=== PATIENT | female | born 1960 | race Caucasian/White ===

== ENCOUNTER 2017-07-16 18:39 | Emergency (ER) | payer BC ==
[2017-07-16 18:55] VITALS: BP 181/76; PULSE 63; RESP 18; TEMP 98.5; O2SAT 100
--- NOTE | 2017-07-16 20:58 | RADRPT ---
EXAM DATE/TIME: 07/16/2017 20:03 [facility] COMPARISON: No previous studies available for comparison. INDICATIONS : Radiculopathy. Pain in lower back with right leg numbness. MEDICAL HISTORY : Diabetes mellitus type 2. SURGICAL HISTORY : Cholecystectomy. ENCOUNTER: Initial ACUITY: 1 week PAIN SCORE: 10/10 LOCATION: Right lower back region. TECHNIQUE: Multiplanar multisequence MRI of the lumbar spine was performed without contrast. FINDINGS: The most caudal appearing lumbar vertebra is numbered as L5. VERTEBRAE: Homogeneous signal. Normal alignment. CONUS: Normal level and configuration. T12-L1: The thecal sac has a normal diameter. No evidence of disc bulge or protrusion. The neural foramina are patent bilaterally. L1-L2: The thecal sac has a normal diameter. No evidence of disc bulge or protrusion. The neural foramina are patent bilaterally. L2-L3: The thecal sac has a normal diameter. No evidence of disc bulge or protrusion. The neural foramina are patent bilaterally. L3-L4: No significant abnormality. There is a large extruded disc posterior to the right side of the vertebral body at L5. On the sagitt al T2-weighted images the annular tear appears to be at L5-S1 with extrusion cephalad although I lise ot completely but an extrusion caudally from L4-5. At L4-5 there is a mild central disc bulge or protrusion as well. There is severe effacement of the r ight lateral recess at L5. CONCLUSION: 1. There is a large extruded disc on the right side of L5 posteriorly resulting in severe stenosis of the right lateral recess. The extruded disc measures up to about 2.9 cm in length and 1 cm in diamet er and probably extends cephalad from L5-S1. Luis Knox MD on July 16, 2017 at 20:52 Board Certified Radiologist. This report was verified electronically.
[2017-07-16 21:55] LABS: BASOPHIL # 0.1 TH/MM3 (0-0.2); BASOPHIL % 0.4 % (0.0-2.0); EOSINOPHIL # 0.1 TH/MM3 (0-0.4); EOSINOPHIL % 0.5 % (0.0-4.0); HEMATOCRIT 42.4 % (35.0-46.0); HEMOGLOBIN 13.9 GM/DL (11.6-15.3); LYMPH % 30.3 % (9.0-44.0); LYMPHOCYTE # 5.3 TH/MM3 (1.0-4.8); MEAN CELL VOLUME 88.4 FL (80.0-100.0); MEAN CORPUSCULAR HEMOGLOBIN 28.9 PG (27.0-34.0); MEAN CORPUSCULAR HGB CONC 32.7 % (32.0-36.0); MEAN PLATELET VOLUME 8.5 FL (7.0-11.0); MONO % 5.9 % (0.0-8.0); NEUT % 62.9 % (16.0-70.0); PLATELET COUNT 349 TH/MM3 (150-450); RED CELL DISTRIBUTION WIDTH 13.6 % (11.6-17.2); WHITE BLOOD COUNT 17.5 TH/MM3 (4.0-11.0)
[2017-07-16 22:19] LABS: PROTHROMBIN TIME - PATIENT 10.3 SEC (9.8-11.6)
--- NOTE | 2017-07-16 22:21 | PD ---
HPI Chief Complaint: Back/ Neck Pain or Injury Time Seen by Provider: 22:19 Travel History International Travel<30 days: No Contact w/Intl Traveler<30days: No Traveled to known affect area: No History of Present Illness HPI The patient is a 57 year old female who presents to the [facility] emergency department with a history of increasing low back pain that began when she moved to the area and started walking 4-6 miles per day. She reports that 2 weeks ago she stopped walking that much due to an exacerbation of her degenerative disc disease of the back. She reports that approximately 2 weeks ago she developed a new type of pressure sensation in her back that radiated down the right leg. She reports that she then began to have numbness in the dorsum of the right foot and foot drop. She reports that she was catching her toes on objects while she walks. She reports that she developed the weakness in her right lower extremity 2 days ago. She reports that she went to the emergency department for treatment of her pain and was given a prescription for tramadol, however she has not been taking that as she does not tolerate narcotics well, however she has been on a prednisone taper for the last 4 days. She reports that she additionally went to a local chiropractor and an MRI was ordered. The MRI was completed earlier today and the chiropractor spoke to the neurosurgeon, Dr. Miller who is on-call for neurosurgery today. She was sent to the emergency department for evaluation and treatment. She denies having any recent fevers or chills. She reports having night sweats that are no worse than usua related to being menopausal. She denies having any loss of bowel or bladder control. On review of systems otherwise, the patient denies having cough, congestion, neck pain, chest pain, shortness of breath, abdominal pain, vomiting, urinary symptoms, or other neurologic symptoms. Patient reports that she has had some recent diarrhea, however she was recently diagnosed as being diabetic and placed on metformin. [facility] Past Medical History Narrative Medical The patient's past medical history is significant for diabetes mellitus, degenerative disc disease of the low back. Diabetes: Yes Past Surgical History Narrative Surgical The patient's past surgical history is significant for a cholecystectomy. Social History Alcohol Use: No Tobacco Use: No Substance Use: No Allergies-Medications (Allergen,Severity, Reaction): Coded Allergies: Penicillins (Verified Allergy, Mild, HIVES, 07/16/17) Sulfa (Sulfonamide Antibiotics) (Verified Allergy, Mild, HIVES, 07/16/17) amoxicillin (Verified Allergy, Mild, HIVES, 07/16/17) ciprofloxacin (Verified Allergy, Mild, HIVES, 07/16/17) erythromycin base (Verified Allergy, Mild, HIVES, 07/16/17) sulfamethoxazole (Verified Allergy, Mild, HIVES, 07/16/17) trimethoprim (Verified Allergy, Mild, HIVES, 07/16/17) phenazopyridine (Verified Allergy, Unknown, PALPITATIONS, 07/16/17) Narrative Medication Metformin, prednisone taper, 800 mg of ibuprofen as needed Review of Systems Except as stated in HPI: all other systems reviewed are Neg General / Constitutional: No: Fever Eyes: No: Visual changes HENT: No: Headaches Cardiovascular: No: Chest Pain or Discomfort Respiratory: No: Shortness of Breath Gastrointestinal: No: Nausea, Vomiting, Diarrhea, Abdominal Pain Genitourinary: No: Dysuria, Incontinence Musculoskeletal: No: Pain Skin: No Rash Neurologic: Positive: Weakness, Focal Abnormalities, Sensory Disturbance, No: Change in Mentation, Slurred Speech Psychiatric: No: Depression Endocrine: No: Polydipsia Hematologic/Lymphatic: No: Easy Bruising Physical Exam Narrative General: The patient is a well-developed well-nourished female in no acute distress. Head and Neck exam: Head is normocephalic atraumatic. Eyes: EOMI, pupils are equal round and reactive to light. Nose: Midline septum with pink mucous membranes Mouth: Dentition unremarkable. Moist mucus membranes. Posterior oropharynx is not erythematous. No tonsillar hypertrophy. Uvula midline. Airway patent. Neck: No palpable lymphadenopathy. No nuchal rigidity. No thyromegaly. Cardiovascular: Regular rate and rhythm without murmurs, gallops, or rubs. Lungs: Clear to auscultation bilaterally. No wheezes, rhonchi, or rales. Abdomen: Soft, without tenderness to palpation in all 4 quadrants of the abdomen. No guarding, rebound, or rigidity. Normal bowel sounds are audible. No tenderness on palpation of McBurney's point. Extremities: No clubbing, cyanosis, or edema. 2+ pulses in all 4 extremities. No calf tenderness on palpation. Back: No spinous process tenderness to palpation. No costovertebral angle tenderness to palpation. The patient has tenderness on palpation over the right buttock. There is no erythema, edema, warmth or rash noted Neurologic Exam: Cranial nerves 2-12 were intact on exam. The patient has strength that is 5/5 in bilateral upper extremities and the left lower extremity, and on examination of the right lower extremity the patient has weakness with toe pointing. The patient reports having numbness and tingling to the dorsum of the right foot. The patient has a positive straight leg raise bilaterally Skin Exam: No rash noted. Intact skin that is warm and dry. Data Data Last Documented VS Vital Signs Date Time Temp Pulse Resp B/P (MAP) Pulse Ox O2 Delivery O2 Flow Rate FiO2 07/16/17 18:55 98.5 63 18 181/76 (111) 100 Orders Orders Complete Blood Count With Diff (07/16/17 19:11) Basic Metabolic Panel (Bmp) (07/16/17 19:11) Coag Profile (07/16/17 19:11) Mri L Spine W/O Contrast (07/16/17 ) Electrocardiogram (07/16/17 22:53) Urinalysis - C+S If Indicated (07/16/17 22:53) Chest, Single Ap (07/16/17 22:53) Labs Laboratory Tests Test 07/16/17 20:55 White Blood Count 17.5 TH/MM3 Red Blood Count 4.80 MIL/MM3 Hemoglobin 13.9 GM/DL Hematocrit 42.4 % Mean Corpuscular Volume 88.4 FL Mean Corpuscular Hemoglobin 28.9 PG Mean Corpuscular Hemoglobin Concent 32.7 % Red Cell Distribution Width 13.6 % Platelet Count 349 TH/MM3 Mean Platelet Volume 8.5 FL Neutrophils (%) (Auto) 62.9 % Lymphocytes (%) (Auto) 30.3 % Monocytes (%) (Auto) 5.9 % Eosinophils (%) (Auto) 0.5 % Basophils (%) (Auto) 0.4 % Neutrophils # (Auto) 11.0 TH/MM3 Lymphocytes # (Auto) 5.3 TH/MM3 Monocytes # (Auto) 1.0 TH/MM3 Eosinophils # (Auto) 0.1 TH/MM3 Basophils # (Auto) 0.1 TH/MM3 CBC Comment AUTO DIFF Differential Comment AUTO DIFF CONFIRMED Platelet Estimate NORMAL Platelet Morphology Comment NORMAL Red Cell Morphology Comment NORMAL Prothrombin Time 10.3 SEC Prothromb Time International Ratio 1.0 RATIO Activated Partial Thromboplast Time 25.2 SEC Blood Urea Nitrogen 19 MG/DL Creatinine 0.81 MG/DL Random Glucose 127 MG/DL Calcium Level 9.4 MG/DL Sodium Level 139 MEQ/L Potassium Level 4.0 MEQ/L Chloride Level 102 MEQ/L Carbon Dioxide Level 27.1 MEQ/L Anion Gap 10 MEQ/L Estimat Glomerular Filtration Rate 73 ML/MIN MDM Medical Decision Making Medical Screen Exam Complete: Yes Emergency Medical Condition: Yes Medical Record Reviewed: Yes Differential Diagnosis Lumbar radiculopathy, versus spinal stenosis, versus spinal mass Narrative Course During the course of the patient's emergency department visit, the patient's history, examination, and differential diagnosis were reviewed with the patient. The patient was placed on a hospital monitor with oximetry and frequent blood pressure monitoring. The patient had IV access obtained and blood work sent for analysis. The patient's laboratory studies were reviewed and remarkable for a white count of 17.5, hemoglobin 13.9, platelets 349 with an unremarkable differential. The patient's leukocytosis could be related to the patient's recent placement on a prednisone taper pack. She has no other signs or symptom to suggest infection. Basic metabolic profile is remarkable for BUN of 19, glucose 127. PT 10.3, PTT 20 five-point Radiology studies were reviewed and remarkable for a lumbar spine MRI reveals there is a large extruded disc on the right side of L5 posteriorly resulting in severe stenosis of the right lateral recess. The extruded disc measures up to about 2.9 cm in length and 1 cm in diameter and probably extends cephalad from L5-S1. A call was placed out to Dr. Miller. He did arrive in the emergency department and evaluated the patient in person after reviewing the patient's MRI findings. He discussed the patient's history and examination with her and recommended surgery, however the patient prefers watchful waiting and discharge home with close follow up. She will follow-up with him in his office for reexamination. Per his recommendation she will complete the prednisone taper pack and will also be given a prescription for Toradol to be taken as needed for pain. She was instructed to discontinue the Advil/ibuprofen that she has been taking at home currently. She will also be given a prescription for Robaxin. She was also instructed that if the symptoms are worsening including the weakness she should report back immediately to the emergency department. The patient is resting comfortably and feels better, is alert and in no distress.The patient will pursue further outpatient evaluation with a primary care physician or other designated or consulting physician as indicated in the discharge instructions. The patient expressed understanding and was agreeable with this plan. Physician Communication Physician Communication The patient's case including history, pertinent physical examination findings, and laboratory studies were discussed with []. It was agreed that the patient would be admitted to the [] hospitalist service. Diagnosis Primary Impression: Lumbar radiculopathy Additional Impression: Right foot drop Referrals: Catracho Miller MD 1 week Patient Instructions: Foot Drop (ED), General Instructions, Lumbar Radiculopathy (ED) Med/Other Pt SpecificInfo: Prescription(s) given Disposition: 01 DISCHARGE HOME Condition: Stable Viviana Nelson MD Jul 16, 2017 22:21
[2017-07-16 22:24] LABS: BICARBONATE 27.1 MEQ/L (21.0-32.0); CALCIUM 9.4 MG/DL (8.5-10.1); CREATININE 0.81 MG/DL (0.50-1.00)
--- NOTE | 2017-07-16 23:59 | PD.CONS ---
History of Present Illness Service Neurosurgery Consult Requested By Dr. Nelson, ED Reason for Consult Lumbar HNP Primary Care Physician Jalyn Vila MD Diagnoses: History of Present Illness 57-year-old female presents to the emergency room upon recommendation from her chiropractor. The patient has a long history of chronic intermittent low back pain. She did have a flareup of radicular pain with an MRI revealing a lumbar disc abnormality approximately 5 years ago. She states that 2 days ago she developed acute onset of severe pain radiating from the right gluteal region to the posterior lateral right lower extremity accompanied by intermittent numbness in the same distribution. She feels that her right foot is dragging a little in the past couple days. No bowel or bladder dysfunction. No fevers or chills. She was seen at the emergency room at [facility] last evening and was given a Medrol Dosepak as well as tramadol. She can only take a half tramadol since it makes her sick. Review of Systems Constitutional: COMPLAINS OF: Weight gain, DENIES: Fever Ears, nose, mouth, throat: DENIES: Vertigo Respiratory: DENIES: Shortness of breath Cardiovascular: DENIES: Chest pain Gastrointestinal: DENIES: Nausea Musculoskeletal: COMPLAINS OF: Muscle aches, Back pain, DENIES: Neck pain Neurologic: COMPLAINS OF: Abnormal gait, Localized weakness, Paresthesias, DENIES: Headache Past Family Social History Allergies: Coded Allergies: Penicillins (Verified Allergy, Mild, HIVES, 07/16/17) Sulfa (Sulfonamide Antibiotics) (Verified Allergy, Mild, HIVES, 07/16/17) amoxicillin (Verified Allergy, Mild, HIVES, 07/16/17) ciprofloxacin (Verified Allergy, Mild, HIVES, 07/16/17) erythromycin base (Verified Allergy, Mild, HIVES, 07/16/17) sulfamethoxazole (Verified Allergy, Mild, HIVES, 07/16/17) trimethoprim (Verified Allergy, Mild, HIVES, 07/16/17) phenazopyridine (Verified Allergy, Unknown, PALPITATIONS, 07/16/17) Past Medical History Diabetes type 2 Past Surgical History Cholecystectomy Reported Medications Medrol Dosepak Ibuprofen 600 mg Tramadol Medication for diabetes Family History Her father passed from complications related to diabetes Social History Does not smoke cigarettes Occasional alcohol Physical Exam Vital Signs Vital Signs Date Time Temp Pulse Resp B/P (MAP) Pulse Ox O2 Delivery O2 Flow Rate FiO2 07/16/17 18:55 98.5 63 18 181/76 (111) 100 Physical Exam GENERAL: This is a well-nourished, well-developed patient, appears moderately uncomfortable during the examination. She prefers to lie prone on the stretcher. SKIN: No rashes, ecchymoses or lesions. Cool and dry. EYES: Sclerae are clear and nonicteric NECK: Trachea midline. Normal range of motion CARDIOVASCULAR: Pulse regular RESPIRATORY: Nonlabored MUSCULOSKELETAL: No tenderness over the lower extremity musculature. Normal muscle tone and bulk extremities NEUROLOGICAL: Awake and alert oriented conversant and appropriate Her speech is clear Recent and remote memory intact No evidence of anxiety or depression Sensation minimally diminished light touch L5 distribution right calf. Strength right lower extremity 2+/5 right tibialis anterior and extensor hallucis longus with 3/5 peroneus longus. Normal strength left lower extremity. Laboratory Laboratory Tests Test 07/16/17 20:55 White Blood Count 17.5 Red Blood Count 4.80 Hemoglobin 13.9 Hematocrit 42.4 Mean Corpuscular Volume 88.4 Mean Corpuscular Hemoglobin 28.9 Mean Corpuscular Hemoglobin Concent 32.7 Red Cell Distribution Width 13.6 Platelet Count 349 Mean Platelet Volume 8.5 Neutrophils (%) (Auto) 62.9 Lymphocytes (%) (Auto) 30.3 Monocytes (%) (Auto) 5.9 Eosinophils (%) (Auto) 0.5 Basophils (%) (Auto) 0.4 Neutrophils # (Auto) 11.0 Lymphocytes # (Auto) 5.3 Monocytes # (Auto) 1.0 Eosinophils # (Auto) 0.1 Basophils # (Auto) 0.1 CBC Comment AUTO DIFF Differential Comment AUTO DIFF CONFIRMED Platelet Estimate NORMAL Platelet Morphology Comment NORMAL Red Cell Morphology Comment NORMAL Prothrombin Time 10.3 Prothromb Time International Ratio 1.0 Activated Partial Thromboplast Time 25.2 Blood Urea Nitrogen 19 Creatinine 0.81 Random Glucose 127 Calcium Level 9.4 Sodium Level 139 Potassium Level 4.0 Chloride Level 102 Carbon Dioxide Level 27.1 Anion Gap 10 Estimat Glomerular Filtration Rate 73 Result Diagram: 07/16/17205407/16/172054 Imaging 07/16/17 MRI lumbar spine images reviewed. Lumbar Spine MRI 07/16/17 0000 Signed Impressions: Service Date/Time: Sunday, July 16, 2017 20:03 - CONCLUSION: 1. There is a large extruded disc on the right side of L5 posteriorly resulting in severe stenosis of the right lateral recess. The extruded disc measures up to about 2.9 cm in length and 1 cm in diameter and probably extends cephalad from L5-S1. Luis Knox MD Assessment and Plan Assessment and Plan Impression: 1. Sequestered right L4 5-S1 level herniated nucleus pulposis. This appears to arise from the L5-S1 level and extended up to the L4 5 disc level. There is significant displacement of the right L5 nerve root over the disc fragment. 2. Diabetes Plan: Findings were discussed at length with the patient and her mother in the emergency room. Options of conservative treatment and observation, epidural steroid injections, surgical intervention were all fully discussed along with pros and cons of each. I advised her that due to the degree of weakness in the right lower extremity, that it would be prudent to proceed with surgical intervention, and I have offered to proceed directly with surgery this evening to decompress the nerve root to try to decrease the risk of chronic deficit, foot drop. She is advised that although there is a good chance that her pain symptoms will improve with conservative treatment, there may be an increased chance of permanent sensorimotor deficit with conservative treatment and observation versus surgical intervention with early nerve decompression. The patient appears to understand all the above. She states that she does not wish to consider surgical intervention at this time. She understands potential risks of progressive or permanent nerve damage. Signs and symptoms to watch for, activity precautions have been fully discussed. Discussed with emergency room physician. She will be given prescription for Toradol for up to 5 days, not to be taken with ibuprofen. Also Robaxin as needed for muscle spasm. She will continue low dose of tramadol as needed. She will report back to the emergency room if she has any significant decline in her neurologic function. She would otherwise like to follow up in our office in approximately one week. Catracho Miller MD Jul 16, 2017 23:59
[2017-07-17] MEDS ORDERED: ROBA500T PO (00:03)
[2017-07-17] MEDS ORDERED: KETO10 PO (00:03)
== END 2017-07-17 00:34 | disposition home or self-care (01) ==
LOC: NED 18:39 → NEPC 07-17 00:34
DX: M51.17 Intervertebral disc disorders with radiculopathy, lumbosacral region (principal); M21.371 Foot drop, right foot; M48.061 Spinal stenosis, lumbar region without neurogenic claudication; E11.9 Type 2 diabetes mellitus without complications
CPT/HCPCS: 72148; 80048; 85025; 85610; 85730

== ENCOUNTER 2017-07-30 10:47 | Observation (INO) | payer BC ==
[~2017-07-30] VITALS: Ht 160 cm; Wt 85.4 kg
[~2017-07-30 10:47] MED LIST: KETO10 PO; ROBA500T PO
[2017-07-30] MEDS ORDERED: BUPIVACAINE LIPOSOME PF 1.3% 20 ML VIAL ONE (11:04)
[2017-07-30] MEDS ORDERED: LACTATED RINGER'S 1000 ML IV PRN (11:30)
[2017-07-30] MEDS ORDERED: LACTATED RINGER'S 1000 ML INJ 1,000 ML IV SCH (11:30)
[2017-07-30] MEDS ORDERED: CHLORHEXIDINE GLUCONATE 2 % 1 PACK (2 CLOTHS) TOPICAL PRN (11:30)
[2017-07-30] MEDS ORDERED: SODIUM CHLORID 0.9% 500 ML IV PRN (11:30)
[2017-07-30] MEDS ORDERED: POVIDONE IODINE 5% (ANTISEPSIS KIT) 4 APPLICATIONS EACH NARE PRN (11:30)
[2017-07-30] MEDS ORDERED: METOPROLOL TARTRATE 25 MG TAB PO PRN (11:30)
[2017-07-30] MEDS ORDERED: INSULIN HUMAN REGULAR 1,000 UNITS/10 ML VIAL SQ PRN (11:30)
[2017-07-30] MEDS ORDERED: METF500T PO (11:43)
[2017-07-30] MEDS ORDERED: LIDOCAINE HCL 1% PF 5 ML SYRINGE OTHER ONE (12:00)
[2017-07-30] MEDS ORDERED: DEXAMETHASONE SOD PHOS 4 MG/ML VIAL IV ONE (12:00)
[2017-07-30] MEDS ORDERED: ROCURONIUM INJ 50 MG/5 ML SYRINGE IV PUSH ONE (12:00)
[2017-07-30] MEDS ORDERED: KETOROLAC TROMETHAMINE 30 MG/ML (IVP) VIAL IV PUSH ONE (12:00)
[2017-07-30] MEDS ORDERED: ONDANSETRON HCL 4 MG/2 ML VIAL IV ONE (12:00)
[2017-07-30] MEDS ORDERED: NEOSTIGMINE 5 MG/5 ML SYRINGE IV PUSH ONE (12:00)
[2017-07-30] MEDS ORDERED: GLYCOPYRROLATE 1 MG/5 ML SYRINGE IV PUSH ONE (12:00)
[2017-07-30] MEDS ORDERED: PHENYLEPH/NS 1000 MCG/10 ML SYR IV ONE (12:00)
[2017-07-30] MEDS ORDERED: ePHEDrine/NS 25 MG/5 ML SYRINGE IV ONE (12:00)
[2017-07-30] MEDS ORDERED: LACTATED RINGER'S 1000 ML INJ 1,000 ML IV ONE (12:00)
[2017-07-30] MEDS ORDERED: PROPOFOL 200 MG/20 ML AMP IV ONE (12:00)
[2017-07-30] MEDS ORDERED: ACETAMINOPHEN 1000 MG/100 ML 100 ML IV ONE (13:05)
[2017-07-30] MEDS ORDERED: APREPITANT 40 MG CAP ONE (13:09)
[2017-07-30] MEDS ORDERED: CLINDAMYCIN PHOS 600 MG/4 ML VIAL ONE (13:39)
[2017-07-30] MEDS ORDERED: LIDOCAINE 1%/EPINEPHrine 1:100,000 SOLN 30 ML VIAL ONE (13:39)
[2017-07-30] MEDS ORDERED: THROMBIN (TOPICAL) 5,000 UNIT VIAL ONE (13:39)
[2017-07-30] MEDS ORDERED: GENTAMICIN SULFATE 80 MG/2 ML VIAL ONE (13:40)
[2017-07-30] MEDS ORDERED: GELFOAM SIZE 100 ONE (13:40)
[2017-07-30] MEDS ORDERED: BUPIVACAINE LIPOSOME PF 1.3% 20 ML VIAL INFIL ONE ×2 (15:39→16:00)
[2017-07-30] MEDS ORDERED: DO NOT ADM ANY ANTICOAGULANT DRUGS PRN (17:13)
[2017-07-30] MEDS ORDERED: MORPHINE SULFATE 4 MG/ML INJ ONE (17:18)
[2017-07-30] MEDS ORDERED: MIDAZOLAM HCL 2 MG/2 ML VIAL ONE (17:20)
[2017-07-30] MEDS ORDERED: *ONDANSETRON 4 MG VIAL PERIprocedural Use ONLY ONE (17:26)
[2017-07-30] MEDS ORDERED: *PROMETHAZINE 25 MG/ML VIAL PERIprocedural use ONLY ONE (17:37)
--- NOTE | 2017-07-30 18:08 | RADRPT ---
EXAM DATE/TIME: 07/30/2017 14:10 [facility] COMPARISON: No previous studies available for comparison. INDICATIONS : Lower back pain. MEDICAL HISTORY : Diabetes mellitus type 2. SURGICAL HISTORY : Cholecystectomy. ENCOUNTER: Initial ACUITY: 1 day PAIN SCORE: Non-responsive. LOCATION: Bilateral lower back. FINDINGS: A single lateral view of the lumbar spine was performed. Marker is placed over the posterior elements at the lumbosacral junction. CONCLUSION: 1. Spine marker as above. Luis Knox MD on July 30, 2017 at 18:06 Board Certified Radiologist. This report was verified electronically.
[2017-07-30] MEDS ORDERED: METOCLOPRAMIDE HCL 10 MG/2 ML VIAL ONE (18:11)
[2017-07-30] MEDS ORDERED: METOCLOPRAMIDE HCL 10 MG/2 ML VIAL IV ONE (19:00)
[2017-07-30] MEDS ORDERED: *RESP: ALBUTEROL 2.5 MG/3 ML NEB (PRN) PERIprocedural Use ONLY NEB ONE (19:01)
[2017-07-30] MEDS ORDERED: D5-1/2 NS + KCL 20 MEQ INJ 1,000 ML IV SCH (19:59)
[2017-07-30] MEDS ORDERED: PROMETHAZINE INJ 25 MG/ML VIAL IM PRN (20:00)
[2017-07-30] MEDS ORDERED: ONDANSETRON HCL 4 MG/2 ML VIAL IV PUSH PRN (20:00)
[2017-07-30] MEDS ORDERED: NALOXONE HCL 0.4 MG/ML AMP IV PUSH PRN (20:00)
[2017-07-30] MEDS ORDERED: GLUCAGON 1 MG/ML VIAL OTHER PRN (20:15)
[2017-07-30] MEDS ORDERED: DEXTROSE 50% IN WATER 50 ML VIAL(D50) IV PUSH PRN (20:15)
--- NOTE | 2017-07-30 20:17 | PD.OP ---
Operative Report Date of Surgery: Jul 30, 2017 Preoperative Diagnosis: (1) Herniated nucleus pulposus, lumbar (2) Lumbar radiculopathy 1. Right L5-S1 sequestered herniated nucleus pulposus 2. Right lumbar radiculopathy with sensory or motor deficit Postoperative Diagnosis: (1) Herniated nucleus pulposus, lumbar (2) Lumbar radiculopathy 1. Right L5-S1 sequestrated herniated nucleus pulposus 2. Right lumbar radiculopathy with sensory motor deficit. Procedure: Right L5 hemilaminectomy, discectomy, resection sequestered herniated nucleus pulposus Anesthesia: Gen. Surgeon: Catracho Miller Paper Baling Machine Operator(s): Lora Sharp Operation and Findings: Findings: Significant annular tear at the junction of the right superior L5-S1 annulus and the right posterior inferior L5 vertebral body margin. Large sequestered disc fragment dissecting caudal at the right L5 lateral recess initially beneath the posterior longitudinal ligament and then extending as a sequestered fragment in the epidural space at the medial right L5-S1 foramen, impinging on the exiting right L5 nerve root. Significant fragments of loose nucleus pulposis within the L5-S1 interspace. Procedure in detail: The patient was brought into the operating room and general endotracheal anesthesia induced without difficulty. Tran catheter was placed. Knee-high sequential compression devices were placed. Lines were established by Anesthesia The patient was placed in prone position on the concentric Geovani table with the side bolsters and all extremities appropriately padded Appropriate timeout procedure was performed with all personal present and in agreement The lumbar region was shaved with clippers and sterilely prepped and draped. 1% Xylocaine with epinephrine was used for local infiltration over the incision site which was made just to the right of midline at the L5-S1 level. The incision was carried sharply down to the lumbodorsal fascia which was incised just adjacent to the spinous processes. Rangel elevator was used for subperiosteal elevation of paraspinous musculature and fascia away from the lamina and spinous process The deep self-retaining retractor was placed. The appropriate level was verified with intraoperative C-arm. The microscope was moved into place and used for the remainder of the procedure including the closure. The TPS drill with the 5 mm bone bur followed by the 3 mm Kerrison rongeur was used to remove the inferior aspect of the most cephalad lamina and a small amount of the superior aspect of the most caudal lamina along with a small amount of the medial facet sufficient to gain access to the lateral recess without significant nerve root or thecal sac retraction. The ligamentum flavum was elevated away from the thecal sac and resected with the Kerrison rongeur which was also used to further remove ligamentum along the lateral recess. The exiting nerve root was traced down to the medial aspect of the inferior pedicle and traced back to the exit from the thecal sac. The thecal sac and exiting nerve root were then retracted gently medially revealing the underlying right L5-S1 disc and annulus. The patient was noted to have a prominent annular tear at the junction of the right superior L5-S1 annulus and posterior inferior right L5 vertebral body with a prominent subannular herniated nucleus pulposus which was extending cephalad in the right L5 level lateral recess up to the level of the pedicle and was significantly impinging on the exiting right L5 nerve root and thecal sac. A sequestered fragment was freed up with the long nerve hook and removed with the micro-biopsy forceps. The right L5-S1 disc and annulus were incised with the 11 blade knife and discectomy performed with the pituitary biopsy forceps and the straight and angled curettes. Any loose pieces of disc material in the intervertebral disc space were carefully removed. The neural structures appeared well decompressed at the end of the procedure. Bleeding was carefully controlled with bone wax for the bone bleeding and bipolar forceps. There is no significant bleeding time of closure. No cerebrospinal fluid leakage was encountered. 20 cc of Exparel was injected into the paraspinous musculature adjacent to the incision site prior to closure. The closure was performed with 0 Vicryl interrupted for the deep and superficial fascia, with 3-0 Vicryl interrupted for the subcutaneous closure, and 4-0 Vicryl running for the subcuticular closure. The dressing of sterile Mastisol, Steri-Strips, and Primapore dressing was applied. The patient was taken to recovery room in stable condition. All counts were correct at the end of the case. No specimen was sent to pathology. Estimated blood loss was 50 cc . Catracho Miller MD Jul 30, 2017 20:17
[2017-07-30] MEDS: INSULIN NovoLIN REGULAR SUPPLEMENTAL SCALE SQ SCH (20:50)
[2017-07-30] MEDS: 1/2 NS + KCL 20 MEQ INJ 1,000 ML IV SCH (20:50)
--- NOTE | 2017-07-30 22:48 | EKG ---
Date Performed: 07/30/2017 Time Performed: 11:34:54 PTAGE: 57 years EKG: Sinus rhythm LOW QRS VOLTAGE IN PRECORDIAL LEADS MODERATE VOLTAGE CRITERIA FOR LVH, CONSIDER NORMAL VARIANT POSSI BLE INFERIOR MYOCARDIAL INFARCTION , PROBABLY OLD BORDERLINE ECG NO PREVIOUS TRACING DOCTOR: Liberty Herron Interpretating Date/Time 07/30/2017 22:48:08
[2017-07-31] MEDS: ACETAMINOPHEN 325 MG TAB PO PRN ×3 (01:05→17:14)
[2017-07-31 03:47] VITALS: BP 134/64; PULSE 75; RESP 18; TEMP 98.1; O2SAT 97
[2017-07-31 07:18] VITALS: BP 149/70; PULSE 73; RESP 18; TEMP 98.6; O2SAT 99
[2017-07-31] MEDS: 1/2 NS + KCL 20 MEQ INJ 1,000 ML IV SCH (07:30)
[2017-07-31] MEDS: INSULIN NovoLIN REGULAR SUPPLEMENTAL SCALE SQ SCH ×2 (08:00→12:00)
[2017-07-31] MEDS ORDERED: PANTOPRAZOLE SOD 40 MG DELAYED RELEASE TAB PO SCH (09:00)
[2017-07-31] MEDS: metFORMIN HCL 500 MG TAB PO SCH ×2 (09:22→17:15)
[2017-07-31] MEDS: METHOCARBAMOL 500 MG TAB PO SCH ×3 (09:23→17:15)
[2017-07-31 11:50] VITALS: BP 139/65; PULSE 69; RESP 18; TEMP 98.9; O2SAT 95
[2017-07-31 15:17] VITALS: BP 172/89; PULSE 85; RESP 18; TEMP 97.8; O2SAT 96
[2017-07-31 20:19] VITALS: BP 151/67; PULSE 90; RESP 18; TEMP 98.7; O2SAT 95
[2017-07-31] MEDS ORDERED: KETO10 PO (20:35)
--- NOTE | 2017-07-31 20:36 | HHI.DCPOC ---
Discharge Care Plan Your Health Problems Are: Difficulty with ADL Incision/Drains Exercise Tolerance Chronic Pain Goals to Promote Your Health * To prevent worsening of your condition and complications * To maintain your health at the optimal level Directions to Meet Your Goals Take your medications as prescribed Follow your dietary instruction Follow activity as directed Keep your appointments as scheduled Take your immunizations and boosters as scheduled If your symptoms worsen call your PCP, if no PCP go to Urgent Care Center or Emergency Room Smoking is Dangerous to Your Health. Avoid second hand smoke Call the 24-hour hour crisis hotline for domestic abuse at Catracho Miller MD Jul 31, 2017 20:36
--- NOTE | 2017-07-31 20:38 | HHI.DS ---
Discharge Summary Admission Date Jul 30, 2017 at 21:10 Discharge Date: Jul 31, 2017 Admitting Diagnosis lumbar HNP (1) Herniated nucleus pulposus, lumbar ICD Code: M51.26 - Other intervertebral disc displacement, lumbar region (2) Lumbar radiculopathy ICD Code: M54.16 - Radiculopathy, lumbar region Hospital Course post op nausea and uncontrolled pain , adequately controlled by 07/29/17 Pt Condition on Discharge: Good Discharge Disposition: Discharge Home Discharge Instructions DIET: Follow Instructions for: As Tolerated, No Restrictions Speech Therapy-Diet Recommenda: Regular ACTIVITIES You can perform: Weight Bearing As [place] Activities to Avoid: Driving for 24 hrs, Lifting/Bending, Strenuous Activity New Medications: Ketorolac (Ketorolac) 10 Mg Tab 10 MG PO Q6HR PRN for PAIN, #20 TAB 0 Refills Continued Medications: Metformin (Metformin) 500 Mg Tab 500 MG PO BIDPC for Blood Sugar Management, #60 TAB 0 Refills Methocarbamol (Robaxin) 500 Mg Tab 500 MG PO TID for Muscle Spasm, #60 TAB 0 Refills Catracho Miller MD Jul 31, 2017 20:38
== END 2017-07-31 22:02 | disposition home or self-care (01) ==
LOC: HSDC 10:47 → NEPGCP 21:10
PROVIDERS: ADMIT Neurological Surgery; ATTEND Neurological Surgery
DX: M51.17 Intervertebral disc disorders with radiculopathy, lumbosacral region (principal); R11.0 Nausea; J45.909 Unspecified asthma, uncomplicated; E11.9 Type 2 diabetes mellitus without complications; Z01.810 Encounter for preprocedural cardiovascular examination
CPT/HCPCS: 00630; 63030; 72020; 76000; 93005; 94150; 94664; 96360; 96361; C9290; G0378; J0131; J1100; J1580; J1885; J2250; J2270; J2370; J2405; J2550; J2710; J3010; J7120; J7613; J2765; J8501